=== PATIENT | female | born 1985 | race Caucasian/White ===

== ENCOUNTER 2018-02-14 09:44 | Outpatient (CLI) | payer OTHER | END 2018-02-14 09:52 | disposition home or self-care (01) | LOC: NST 09:44 | DX: Z34.83 Encounter for supervision of other normal pregnancy, third trimester (principal) ==

== ENCOUNTER 2018-02-23 09:14 | Outpatient (CLI) | payer OTHER | END 2018-02-23 10:09 | disposition home or self-care (01) | LOC: NST 09:14 | DX: Z34.03 Encounter for supervision of normal first pregnancy, third trimester (principal) ==

== ENCOUNTER 2018-03-07 08:22 | Outpatient (CLI) | payer OTHER | END 2018-03-07 09:09 | disposition home or self-care (01) | LOC: NST 08:22 | DX: O41.03X0 Oligohydramnios, third trimester, not applicable or unspecified (principal); Z34.83 Encounter for supervision of other normal pregnancy, third trimester ==

== ENCOUNTER 2018-03-10 12:10 | Inpatient (IN) | payer OTHER ==
[~2018-03-10] VITALS: Ht 162.6 cm; Wt 3.2 kg
[2018-03-10] MEDS ORDERED: PRENATAL TABLE1 EAC2 PO (12:21)
== END 2018-03-13 11:08 | disposition home or self-care (01) | DRG 788 ==
LOC: O/R 12:10 → LDR 12:45 → SURG-SUITE 14:56 → LDR 15:19 → SURG-SUITE 03-13 11:08 → LDR 03-18 12:44
PROVIDERS: Obstetrics & Gynecology Maternal & Fetal Medicine
PROC: 4A1HXCZ Monitoring of Products of Conception, Cardiac Rate, External Approach (ICD-10-PCS; 2018-03-10)
PROC: 4A033R1 Measurement of Arterial Saturation, Peripheral, Percutaneous Approach (ICD-10-PCS; 2018-03-10)
PROC: 10D00Z1 Extraction of Products of Conception, Low, Open Approach (ICD-10-PCS; principal; 2018-03-10 13:15)
DX: O34.211 Maternal care for low transverse scar from previous cesarean delivery (principal); O75.82 Onset (spontaneous) of labor after 37 completed weeks of gestation but before 39 completed weeks gestation, with delivery by (planned) cesarean section; Z3A.38 38 weeks gestation of pregnancy; Z37.0 Single live birth

== ENCOUNTER 2021-12-15 12:01 | Outpatient (CLI) | payer OTHER ==
[~2021-12-15 12:01] MED LIST: PRENATAL TABLE1 EAC2 PO
== END 2021-12-15 13:07 | disposition home or self-care (01) ==
LOC: NST 12:01
PROVIDERS: ATTEND Obstetrics & Gynecology Maternal & Fetal Medicine
DX: Z34.83 Encounter for supervision of other normal pregnancy, third trimester (principal)

== ENCOUNTER 2021-12-24 11:29 | Inpatient (IN) | payer OTHER ==
[~2021-12-24] VITALS: Ht 162.6 cm; Wt 3.2 kg
[2022-01-01] MEDS ORDERED: OXYC1TAB9 PO (07:39)
[2022-01-01] MEDS ORDERED: KETO10TA2 PO (07:39)
== END 2022-01-01 13:23 | disposition home or self-care (01) | DRG 785 ==
LOC: LDR 12-29 11:05 → OB/GYN 12-29 13:18 → O/R 12-29 13:18 → LDR 12-29 15:00 → OB/GYN 12-29 16:22
PROVIDERS: ADMIT Obstetrics & Gynecology Maternal & Fetal Medicine; ATTEND Obstetrics & Gynecology Maternal & Fetal Medicine
PROC: 0UB70ZZ Excision of Bilateral Fallopian Tubes, Open Approach (ICD-10-PCS; 2021-12-29)
PROC: 4A1HXCZ Monitoring of Products of Conception, Cardiac Rate, External Approach (ICD-10-PCS; 2021-12-29)
PROC: 10D00Z1 Extraction of Products of Conception, Low, Open Approach (ICD-10-PCS; principal; 2021-12-29 15:00)
DX: O34.211 Maternal care for low transverse scar from previous cesarean delivery (principal); Z3A.39 39 weeks gestation of pregnancy; Z37.0 Single live birth; Z20.822 Contact with and (suspected) exposure to COVID-19; Z30.2 Encounter for sterilization